=== PATIENT | female | born 1940 | race Caucasian/White ===

== ENCOUNTER 2017-06-10 18:28 | Emergency (ER) | payer MEDICARE, BC ==
[2017-06-10 19:53] LABS: BASOPHILS % (AUTO) 0 % (0-3); EOSINOPHILS % (AUTO) 1 % (0-9); HEMATOCRIT 34 % (35-47); MEAN CORPUSCULAR HGB CONC 34.7 gm/dl (32.0-36.0); MONOCYTES % (AUTO) 9.7 % (0-12); NEUTROPHILS % (AUTO) 79.3 % (37-80)
[2017-06-10 19:55] LABS: MEAN CORPUSCULAR VOLUME 77 fL (81-99)
[2017-06-10 20:04] VITALS: RESP 18; TEMP 97.7
[2017-06-10 20:04] LABS: ALBUMIN 3.4 gm/dl (3.4-5.0); CALCIUM 9.4 mg/dl (8.5-10.1); POTASSIUM 3.4 mMol/L (3.5-5.1)
[2017-06-10] MEDS ORDERED: SODIUM CHLORIDE 0.9% 500 ML 500 ML IV ONE (21:02)
[2017-06-10 21:09] LABS: APPEARANCE,URINE Clear; BILIRUBIN,URINE 2+ (NEGATIVE); COLOR,URINE Yellow; GLUCOSE, URINE (UA) NEGATIVE (NEGATIVE); KETONES,URINE 1+ (NEGATIVE); LEUKOCYTE ESTERASE ,URINE 1+ (NEGATIVE); NITRATE,URINE NEGATIVE (NEGATIVE); OCCULT BLOOD,URINE NEGATIVE (NEG-TRACE); PH,URINE 5.5; UROBILINOGEN,URINE 0.2 (0.2-1.0 EU)
[2017-06-10 21:17] LABS: ICTOTEST,URINE NEGATIVE (NEGATIVE)
[2017-06-10 21:18] LABS: RBC,URINE 0-2 (0-3AV/HPF)
[2017-06-10] MEDS ORDERED: SULFAMETHOXAZOLE/TRIMETHOPRI 800/160 MG PO ONE (21:59)
[2017-06-10] MEDS ORDERED: SULFAMETHOXAZOLE/TRIMETHOPRI 800/160 MG ONE (22:02)
[2017-06-10 22:45] VITALS: BP 123/59; PULSE 73; O2SAT 94
== END 2017-06-10 22:40 | disposition home or self-care (01) | DRG 690 ==
LOC: ED 18:28
DX: N30.00 Acute cystitis without hematuria (principal); E86.0 Dehydration
CPT/HCPCS: 36415; 80053; 81001; 85025; 99284

== ENCOUNTER 2018-08-29 17:01 | Inpatient (IN) | payer MEDICARE, BC | END 2018-08-30 11:25 | disposition home or self-care (01) | LOC: ACUTE CARE 17:01 ==

== ENCOUNTER 2018-11-05 07:45 | Day surgery (SDC) | payer MEDICARE, BC ==
[2018-11-05] MEDS ORDERED: LIDOCAINE HCL 1% MPF 30 SOL ONE (08:07)
[2018-11-05] MEDS ORDERED: PROPOFOL 500 MG/50 ML EMU IV ONE (08:07)
[2018-11-05 09:48] VITALS: O2SAT 98
[2018-11-05 09:58] VITALS: RESP 16
[2018-11-05 10:06] VITALS: BP 133/75; PULSE 84; TEMP 97
== END 2018-11-05 10:38 | disposition home or self-care (01) | DRG 812 ==
LOC: SURG 07:45
PROVIDERS: ATTEND Surgery
DX: D50.9 Iron deficiency anemia, unspecified (principal); R10.10 Upper abdominal pain, unspecified; K44.9 Diaphragmatic hernia without obstruction or gangrene; L53.8 Other specified erythematous conditions
CPT/HCPCS: J2001; J2704